=== PATIENT | female | born 1980 | race Two or more races ===

== ENCOUNTER 2016-10-17 11:23 | Emergency (ER) | payer BC ==
[2016-10-17 13:23] LABS: BILIRUBIN,URINE NEGATIVE (NEG); GLUCOSE,URINE 100 mg/dL (NEG); NITRITE,URINE NEGATIVE (NEG); PROTEIN,URINE NEGATIVE (NEG-TRACE); UROBILINOGEN,URINE 0.2 mg/dL (0.2 mg/dL)
[2016-10-17 13:30] LABS: BACTERIA,URINE 0 /HPF (0-FEW); RBC,URINE 0 /HPF (0-2); SQUAMOUS EPITHELIAL CELL,UR FEW /LPF
[2016-10-17] MEDS ORDERED: IV NORMAL SALINE 1000ML BAG 1,000 ML IV SCH (13:38)
[2016-10-17] MEDS ORDERED: ONDANSETRON PF 4 MG/2 ML VIAL. IV ONE (13:45)
[2016-10-17] MEDS ORDERED: FENTANYL PF 100 MCG/2 ML VIAL. IV PRN (13:45)
--- NOTE | 2016-10-17 14:16 | PHYS DOC ---
Past Medical History Past Medical History: No Pertinent History Past Surgical History: No Surgical History Alcohol Use: None Drug Use: None Adult General Chief Complaint Chief Complaint: ABDOMINAL PAIN HPI HPI Patient is a 36 year old female who presents with son for evaluation of right lower quadrant abdominal pain and nausea that started yesterday. She has burning pain to right lower quadrant that is constant and moderate. She has few episodes of nonbloody nonbilious emesis. She denies diarrhea, constipation, vaginal bleeding or discharge, dysuria, hematuria, fever or chills, cough, sick contacts. Review of Systems Review of Systems Constitutional: Denies fever or chills [] Eyes: Denies change in visual acuity, redness, or eye pain [] HENT: Denies nasal congestion or sore throat [] Respiratory: Denies cough or shortness of breath [] Cardiovascular: No additional information not addressed in HPI [] GI: Denies bloody stools or diarrhea [] : Denies dysuria or hematuria [] Musculoskeletal: Denies back pain or joint pain [] Integument: Denies rash or skin lesions [] Neurologic: Denies headache, focal weakness or sensory changes [] Endocrine: Denies polyuria or polydipsia [] Current Medications Current Medications Current Medications Medications (Trade) Dose Ordered Sig/Shaan Start Time Stop Time Status Last Admin Dose Admin Fentanyl Citrate 50 mcg 50 mcg PRN Q15MIN PRN 10/17/16 13:45 10/17/16 17:38 DC 10/17/16 14:30 50 MCG Info (Do NOT chart on this entry -- for MONITORING) 1 each PRN DAILY PRN 10/17/16 16:45 10/17/16 17:38 DC Iohexol (Omnipaque 300 Mg/ml) 75 ml 1X ONCE 10/17/16 17:15 10/17/16 17:16 DC 10/17/16 16:40 75 ML Ondansetron HCl (Zofran) 4 mg 1X ONCE 10/17/16 13:45 10/17/16 13:46 DC 10/17/16 14:20 4 MG Sodium Chloride (Iv Sodium Chloride 0.9% 1000ml Bag) 1,000 ml @ 1,000 mls/hr Q1H 10/17/16 13:38 10/17/16 14:37 DC 10/17/16 14:27 1,000 MLS/HR Allergies Allergies Allergies Coded Allergies Type Severity Reaction Last Updated Verified No Known Drug Allergies 10/17/16 No Physical Exam Physical Exam Constitutional: Well developed, well nourished, no acute distress, non-toxic appearance. [] HENT: Normocephalic, atraumatic, bilateral external ears normal, oropharynx moist, nose normal. [] Eyes: PERRLA, EOMI. [] Neck: Normal range of motion, supple. [] Cardiovascular:Heart rate regular rhythm [] Lungs & Thorax: Bilateral breath sounds clear to auscultation [] Abdomen: Bowel sounds normal, soft, moderate right mid abdominal tenderness, no guarding or rebound. [] Skin: Warm, dry, no erythema, no rash. [] Back: No tenderness, no CVA tenderness. [] Extremities: ROM intact, no edema. [] Neurologic: Alert and oriented X 3, normal motor function, normal sensory function, no focal deficits noted. [] Psychologic: Affect normal, judgement normal, mood normal. [] Current Patient Data Vital Signs Vital Signs Date Time Temp Pulse Resp B/P Pulse Ox O2 Delivery O2 Flow Rate FiO2 10/17/16 17:35 98 65 14 130/74 98 98.0 10/17/16 14:31 Room Air Lab Values Laboratory Tests Test 10/17/16 11:39 10/17/16 13:09 10/17/16 13:25 Urine Collection Type Unknown Urine Color Yellow Urine Clarity Clear Urine pH 6.0 Urine Specific [place] 1.015 Urine Protein Negativemg/dL (NEG-TRACE) Urine Glucose (UA) 100mg/dL (NEG) Urine Ketones (Stick) Negativemg/dL (NEG) Urine Blood Negative (NEG) Urine Nitrite Negative (NEG) Urine Bilirubin Negative (NEG) Urine Urobilinogen Dipstick 0.2mg/dL (0.2 mg/dL) Urine Leukocyte Esterase Small (NEG) Urine RBC 0/HPF (0-2) Urine WBC 1-4/HPF (0-4) Urine Squamous Epithelial Cells Few/LPF Urine Bacteria 0/HPF (0-FEW) POC Urine HCG, Qualitative Hcg negative (Negative) White Blood Count 8.8x10^3/uL (4.0-11.0) Red Blood Count 5.46x10^6/uL (3.50-5.40) H Hemoglobin 14.6g/dL (12.0-15.5) Hematocrit 43.8% (36.0-47.0) Mean Corpuscular Volume 80fL (79-100) Mean Corpuscular Hemoglobin 27pg (25-35) Mean Corpuscular Hemoglobin Concent 33g/dL (31-37) Red Cell Distribution Width 13.2% (11.5-14.5) Platelet Count 282x10^3/uL (140-400) Neutrophils (%) (Auto) 64% (31-73) Lymphocytes (%) (Auto) 29% (24-48) Monocytes (%) (Auto) 6% (0-9) Eosinophils (%) (Auto) 1% (0-3) Basophils (%) (Auto) 1% (0-3) Neutrophils # (Auto) 5.6x10^3uL (1.8-7.7) Lymphocytes # (Auto) 2.5x10^3/uL (1.0-4.8) Monocytes # (Auto) 0.5x10^3/uL (0.0-1.1) Eosinophils # (Auto) 0.1x10^3/uL (0.0-0.7) Basophils # (Auto) 0.0x10^3/uL (0.0-0.2) Sodium Level 137mmol/L (136-145) Potassium Level 3.7mmol/L (3.5-5.1) Chloride Level 102mmol/L (98-107) Carbon Dioxide Level 25mmol/L (21-32) Anion Gap 10 (6-14) Blood Urea Nitrogen 9mg/dL (7-20) Creatinine 0.5mg/dL (0.6-1.0) L Estimated GFR (Cockcroft-Gault) 140.4 Glucose Level 176mg/dL (70-99) H Calcium Level 8.9mg/dL (8.5-10.1) Total Bilirubin 0.5mg/dL (0.2-1.0) Direct Bilirubin 0.1mg/dL (0.0-0.2) Aspartate Amino Transferase (AST) 20U/L (15-37) Alanine Aminotransferase (ALT) 32U/L (14-59) Alkaline Phosphatase 82U/L (46-116) Total Protein 7.4g/dL (6.4-8.2) Albumin 3.3g/dL (3.4-5.0) L Lipase 102U/L (73-393) Laboratory Tests 10/17/16 13:25 Laboratory Tests 10/17/16 13:25 Radiology/Procedures Radiology/Procedures CT abdomen and pelvis with IV contrast Impression: 1.No acute abnormality is identified. Normal appendix is visualized. There may be hepatic steatosis. There may be small adnexal cysts bilaterally. DICTATED and SIGNED BY: KAREEM QUINTANILLA MD DATE: 10/17/161655 Course & Med Decision Making Course & Med Decision Making Pertinent Labs and Imaging studies reviewed. (See chart for details) Workup is unremarkable. She is feeling better after medications. She is tolerating oral intake. Return precautions given. She understands and agrees with plan. Entire encounter performed with son interpreting. Offered blue phone , but patient declined. Dragon Disclaimer Dragon Disclaimer This electronic medical record was generated, in whole or in part, using a voice recognition dictation system. Departure Departure Impression: Primary Impression: Right lower quadrant abdominal pain Additional Impression: Nausea and vomiting Disposition: 01 HOME, SELF-CARE Condition: STABLE Referrals: TRAVIS MCGOVERN MD (PCP) Patient Instructions: Abdominal Pain, Possible Early Appendicitis Additional Instructions: Take promethazine as needed for nausea. Follow-up with your primary care doctor within one week. Return for any concerns. Scripts Promethazine Hcl 25 Mg Tablet1 Tab PO PRN Q6HRS #10 TAB Prov:Sneha GARCÍA MD 10/17/16 Problem Qualifiers Additional Impression: Nausea and vomiting Vomiting type: unspecified Vomiting Intractability: non-intractable Qualified Code: R11.2 - Nausea with vomiting, unspecified Sneha GARCÍA MD Oct 17, 2016 14:16
[2016-10-17 14:30] LABS: BASO % 1 % (0-3); EOS % 1 % (0-3); HEMATOCRIT 43.8 % (36.0-47.0); HEMOGLOBIN 14.6 g/dL (12.0-15.5); LYMPH # 2.5 x10^3/uL (1.0-4.8); LYMPH % 29 % (24-48); MEAN CORPUSCULAR HEMOGLOBIN 27 pg (25-35); MEAN CORPUSCULAR HGB CONC 33 g/dL (31-37); MEAN CORPUSCULAR VOLUME 80 fL (79-100); MONO % 6 % (0-9); NEUT % 64 % (31-73); PLATELET COUNT 282 x10^3/uL (140-400); RED BLOOD COUNT 5.46 x10^6/uL (3.50-5.40); RED CELL DISTRIBUTION WIDTH 13.2 % (11.5-14.5); WHITE BLOOD COUNT 8.8 x10^3/uL (4.0-11.0)
[2016-10-17 14:49] LABS: CALCIUM 8.9 mg/dL (8.5-10.1); CREATININE 0.5 mg/dL (0.6-1.0); GFR 140.4; POTASSIUM 3.7 mmol/L (3.5-5.1)
[2016-10-17 14:54] LABS: ALBUMIN 3.3 g/dL (3.4-5.0); DIRECT BILIRUBIN 0.1 mg/dL (0.0-0.2); TOTAL BILIRUBIN 0.5 mg/dL (0.2-1.0); TOTAL PROTEIN 7.4 g/dL (6.4-8.2)
[2016-10-17] MEDS ORDERED: CONTRAST GIVEN MC PRN (16:45)
--- NOTE | 2016-10-17 17:02 | RAD ---
ABD PELV W/ IV CONTRAST ONLY History:Right lower quadrant pain Technique: After bolus of intravenous contrast, CT imaging was performed of the abdomen and pelvis, multiplanar reconstruction images submitted. Exposure: One or more of the following individualized dose reduction techniques were utilized for this exam: 1. Automated exposure control.2. Adjustment of the mA and/or KV according to patient size.3. Use of iterative reconstruction technique. Comparison: None Findings:There is mild dependent atelectasis. Lung bases. No focal abnormality is identified of the liver, spleen, pancreas. There may be hepatic steatosis. Gallbladder is present without obvious intraluminal abnormality by CT. Both kidneys enhance, no hydronephrosis. Accurate evaluation of bowel is limited without oral contrast. There is no significant bowel dilatation, free air, free fluid. Normal appendix is visualized. There is distention of urinary bladder. There may be small adnexal cysts bilaterally. Impression: 1.No acute abnormality is identified. Normal appendix is visualized. There may be hepatic steatosis. There may be small adnexal cysts bilaterally.
[2016-10-17] MEDS ORDERED: IOHEXOL 300 MG/ML 75 ML VIAL IV ONE (17:15)
[2016-10-17] MEDS ORDERED: PROM25TA10 PO (17:20)
[2016-10-17 17:35] VITALS: BP 130/74
== END 2016-10-17 17:37 | disposition home or self-care (01) ==
LOC: ER 11:23
DX: R10.31 Right lower quadrant pain (principal); R11.2 Nausea with vomiting, unspecified
CPT/HCPCS: 36415; 74177; 80048; 80076; 81001; 81025; 83690; 85027; 96361; 96374; 96375; 99285; J2405; J3010; J7030; Q9967

== ENCOUNTER 2017-01-04 02:36 | Emergency (ER) | payer BC ==
[~2017-01-04 02:36] MED LIST: PROM25TA10 PO
[2017-01-04 02:49] VITALS: BP 163/92
--- NOTE | 2017-01-04 03:03 | PHYS DOC ---
Past Medical History Past Medical History: No Pertinent History Past Surgical History: No Surgical History Alcohol Use: None Drug Use: None Adult General Chief Complaint Chief Complaint: SKIN RASH/ABSCESS HPI HPI Patient is a 36 year old female presenting to the emergency department for evaluation of a rash that has been present for the past 24-48 hours. Rash started on bilateral upper extremities and is itchy and is now on her chest and back. Patient denies any new medications so fast detergents or exposures or anything that she can think of. No difficulty breathing swallowing or shortness of breath. Patient is in no obvious distress with normal vital signs. Review of Systems Review of Systems Constitutional: Denies fever or chills [] GI: Denies abdominal pain, nausea, vomiting, bloody stools or diarrhea [] Integument: + rash. No skin lesions [] Neurologic: Denies headache, focal weakness or sensory changes [] Current Medications Current Medications Current Medications Medications (Trade) Dose Ordered Sig/Shaan Start Time Stop Time Status Last Admin Dose Admin Dexamethasone Sodium Phosphate (Decadron) 8 mg 1X ONCE 01/04/17 03:30 01/04/17 03:31 Diphenhydramine HCl (Benadryl) 50 mg 1X ONCE 01/04/17 03:30 01/04/17 03:31 Famotidine (Pepcid) 20 mg 1X ONCE 01/04/17 03:30 01/04/17 03:31 Allergies Allergies Allergies Coded Allergies Type Severity Reaction Last Updated Verified No Known Drug Allergies 10/17/16 No Physical Exam Physical Exam Constitutional: Well developed, well nourished, no acute distress, non-toxic appearance. [] Cardiovascular:Heart rate regular rhythm, no murmur [] Lungs & Thorax: Bilateral breath sounds clear to auscultation [] Abdomen: Bowel sounds normal, soft, no tenderness, no masses, no pulsatile masses. [] Skin: Hives present on bilateral upper extremities chest and back, Current Patient Data Vital Signs Vital Signs Date Time Temp Pulse Resp B/P Pulse Ox O2 Delivery O2 Flow Rate FiO2 01/04/17 02:49 97.8 80 16 95 Room Air 97.8 EKG EKG [] Radiology/Procedures Radiology/Procedures [] Course & Med Decision Making Course & Med Decision Making Lungs and oral exam quite Unremarkable. Patient given Decadron Benadryl and Pepcid here and will be treated with Benadryl as an outpatient and told to follow with her primary care provider in 2 days to ensure improvement come back to the ER sooner with any worsening rash difficulty breathing swallowing other general concerns. Patient and aware and agreeable with plan and verbalized understanding of the above instructions. Dragon Disclaimer Dragon Disclaimer This electronic medical record was generated, in whole or in part, using a voice recognition dictation system. Departure Departure Impression: Primary Impression: Allergic reaction Disposition: HOME, SELF-CARE Condition: GOOD Referrals: TRAVIS MCGOVERN MD (PCP) Patient Instructions: Allergies, Generic Additional Instructions: TAKE 25-50MG OF BENADRYL EVERY 4-6 HOURS. FOLLOW WITH YOUR PRIMARY CARE PROVIDER IN 2 DAYS AND COME BACK TO THE ED SOONER WITH WORSENING SYMPTOMS. THANK YOU! ESTEBAN VASQUEZ DO January 04, 2017 03:03
[2017-01-04] MEDS ORDERED: DEXAMETHASONE SOD PHOS 4 MG/ML VIAL PO ONE (03:30)
[2017-01-04] MEDS ORDERED: diphenhydrAMINE HCL 25 MG CAPSULE PO ONE (03:30)
[2017-01-04] MEDS ORDERED: FAMOTIDINE 20 MG TABLET. PO ONE (03:30)
== END 2017-01-04 03:27 | disposition home or self-care (01) ==
LOC: ER 02:36
DX: T78.49XA Other allergy, initial encounter (principal); X58.XXXA Exposure to other specified factors, initial encounter
CPT/HCPCS: 99284; J1100; Q0163

== ENCOUNTER 2017-04-29 20:36 | Emergency (ER) | payer BC ==
[~2017-04-29] VITALS: Ht 157.5 cm; Wt 65.8 kg
[~2017-04-29 20:36] MED LIST changes: +BUTA1CAP29 PO; +METF500T4 PO
[2017-04-29 21:10] LABS: BILIRUBIN,URINE NEGATIVE (NEG); GLUCOSE,URINE >=1000 mg/dL (NEG); NITRITE,URINE NEGATIVE (NEG); PROTEIN,URINE NEGATIVE (NEG-TRACE); UROBILINOGEN,URINE 0.2 mg/dL (0.2 mg/dL)
[2017-04-29 21:13] LABS: NEG OBC UR NEG; POS OBC UR POS
[2017-04-29 21:17] LABS: BACTERIA,URINE FEW /HPF (0-FEW); RBC,URINE 0 /HPF (0-2); SQUAMOUS EPITHELIAL CELL,UR MANY /LPF
[2017-04-29 21:44] LABS: BASO # 0.1 x10^3/uL (0.0-0.2); BASO % 1 % (0-3); EOS % 2 % (0-3); HEMATOCRIT 39.8 % (36.0-47.0); LYMPH # 2.8 x10^3/uL (1.0-4.8); LYMPH % 38 % (24-48); MEAN CORPUSCULAR HEMOGLOBIN 27 pg (25-35); MEAN CORPUSCULAR HGB CONC 33 g/dL (31-37); MEAN CORPUSCULAR VOLUME 81 fL (79-100); MONO % 8 % (0-9); NEUT % 52 % (31-73); PLATELET COUNT 231 x10^3/uL (140-400); RED CELL DISTRIBUTION WIDTH 13.5 % (11.5-14.5); WHITE BLOOD COUNT 7.4 x10^3/uL (4.0-11.0)
[2017-04-29] MEDS ORDERED: oxyCODONE/APAP 5/325 1 TAB TABLET PO ONE (21:45)
[2017-04-29] MEDS ORDERED: ONDANSETRON PF 4 MG/2 ML VIAL. IV ONE (21:45)
[2017-04-29] MEDS ORDERED: KETOROLAC TROMETHAMINE 30 MG/ML INJ. IV ONE (21:45)
[2017-04-29] MEDS ORDERED: IV NORMAL SALINE 1000ML BAG 1,000 ML IV ONE (21:45)
[2017-04-29 21:53] LABS: CALCIUM 8.3 mg/dL (8.5-10.1); CREATININE 0.7 mg/dL (0.6-1.0); GFR 94.7; POTASSIUM 4.1 mmol/L (3.5-5.1)
[2017-04-29 21:58] LABS: INR 0.9 (0.8-1.1); PROTHROMBIN TIME PATIENT 11.9 SEC (11.7-14.0)
[2017-04-29 21:59] LABS: ALBUMIN 3.3 g/dL (3.4-5.0); ALBUMIN/GLOBULIN RATIO 0.9 (1.0-1.7); MAGNESIUM 1.9 mg/dL (1.8-2.4); TOTAL BILIRUBIN 0.2 mg/dL (0.2-1.0); TOTAL PROTEIN 6.9 g/dL (6.4-8.2)
[2017-04-29] MEDS ORDERED: AZIT1PAC PO (23:15)
[2017-04-29] MEDS ORDERED: HYDR-971 PO (23:15)
--- NOTE | 2017-04-29 23:15 | PHYS DOC ---
Past Medical History Past Medical History: Hypertension, Other Additional Past Medical Histor: HYPERGLYCEMIA Past Surgical History: No Surgical History Alcohol Use: None Drug Use: None Adult General Chief Complaint Chief Complaint: ABDOMINAL PAIN HPI HPI Patient is a 37 year old female presenting to the emergency department for evaluation of chest pain cough nasal congestion and runny nose that started 3-4 days ago and has persisted. Patient is present with children who are interpreting for patient. Recommended blue phone video operator however patient requested that family interpret. Pain is on the left chest sharp movements and deep breaths and palpation make the pain worse. Patient's cough is nonproductive and she denies any fevers chills nausea vomiting or other systemic symptoms. Patient says that she is healthy and has no medical problems. She has been told that she has high blood pressure and high blood sugar but has not officially been diagnosed and is not on any medications. She is in no obvious distress with normal vital signs. Review of Systems Review of Systems Constitutional: Denies fever or chills [] Eyes: Denies change in visual acuity, redness, or eye pain [] HENT: + nasal congestion. No sore throat [] Respiratory: + cough. No shortness of breath [] Cardiovascular: No additional information not addressed in HPI [] GI: Denies abdominal pain, nausea, vomiting, bloody stools or diarrhea [] : Denies dysuria or hematuria [] Musculoskeletal: Denies back pain or joint pain [] Integument: Denies rash or skin lesions [] Neurologic: Denies headache, focal weakness or sensory changes [] Current Medications Current Medications Current Medications Medications (Trade) Dose Ordered Sig/[facility] Start Time Stop Time Status Last Admin Dose Admin Ketorolac Tromethamine (Toradol) 30 mg 1X ONCE 04/29/17 21:45 04/29/17 21:46 DC 04/29/17 21:46 30 MG Ondansetron HCl (Zofran) 4 mg 1X ONCE 04/29/17 21:45 04/29/17 21:46 DC 04/29/17 21:45 4 MG Oxycodone/ Acetaminophen (Percocet 5/325) 2 tab 1X ONCE 04/29/17 21:45 04/29/17 21:46 DC 04/29/17 21:47 2 TAB Sodium Chloride 1,000 ml @ 1,000 mls/hr 1X ONCE 04/29/17 21:45 04/29/17 22:44 DC 04/29/17 21:45 1,000 MLS/HR Allergies Allergies Allergies Coded Allergies Type Severity Reaction Last Updated Verified No Known Drug Allergies 10/17/16 No Physical Exam Physical Exam Constitutional: Well developed, well nourished, no acute distress, non-toxic appearance. [] HENT: Normocephalic, atraumatic, bilateral external ears normal, oropharynx moist, no oral exudates, nose normal. [] Eyes: PERRLA, EOMI, conjunctiva normal, no discharge. [] Neck: Normal range of motion, no tenderness, supple, no stridor. [] Cardiovascular:Heart rate regular rhythm, no murmur [] Lungs & Thorax: Bilateral breath sounds clear to auscultation. Ribs under her left breast very tender to palpation and pain goes along left rib cage laterally and posteriorly. Abdomen: Bowel sounds normal, soft, no tenderness, no masses, no pulsatile masses. [] Skin: Warm, dry, no erythema, no rash. [] Back: No tenderness, no CVA tenderness. [] Extremities: No tenderness, no cyanosis, no clubbing, ROM intact, no edema. [] Neurologic: Alert and oriented X 3, normal motor function, normal sensory function, no focal deficits noted. [] Current Patient Data Vital Signs Vital Signs Date Time Temp Pulse Resp B/P (MAP) Pulse Ox O2 Delivery O2 Flow Rate FiO2 04/29/17 22:30 74 20 158/83 (108) 100 Room Air 04/29/17 20:56 98.2 98.2 Lab Values Laboratory Tests Test 04/29/17 21:00 04/29/17 21:36 Urine Collection Type Unknown Urine Color Yellow Urine Clarity Clear Urine pH 6.0 Urine Specific [place] >=1.030 Urine Protein Negative mg/dL (NEG-TRACE) Urine Glucose (UA) >=1000 mg/dL (NEG) Urine Ketones (Stick) Negative mg/dL (NEG) Urine Blood Negative (NEG) Urine Nitrite Negative (NEG) Urine Bilirubin Negative (NEG) Urine Urobilinogen Dipstick 0.2 mg/dL (0.2 mg/dL) Urine Leukocyte Esterase Small (NEG) Urine RBC 0 /HPF (0-2) Urine WBC 5-10 /HPF (0-4) Urine Squamous Epithelial Cells Many /LPF Urine Bacteria Few /HPF (0-FEW) Urine Mucus Mod /LPF Urine Test Negative (NEG) White Blood Count 7.4 x10^3/uL (4.0-11.0) Red Blood Count 4.90 x10^6/uL (3.50-5.40) Hemoglobin 13.0 g/dL (12.0-15.5) Hematocrit 39.8 % (36.0-47.0) Mean Corpuscular Volume 81 fL (79-100) Mean Corpuscular Hemoglobin 27 pg (25-35) Mean Corpuscular Hemoglobin Concent 33 g/dL (31-37) Red Cell Distribution Width 13.5 % (11.5-14.5) Platelet Count 231 x10^3/uL (140-400) Neutrophils (%) (Auto) 52 % (31-73) Lymphocytes (%) (Auto) 38 % (24-48) Monocytes (%) (Auto) 8 % (0-9) Eosinophils (%) (Auto) 2 % (0-3) Basophils (%) (Auto) 1 % (0-3) Neutrophils # (Auto) 3.8 x10^3uL (1.8-7.7) Lymphocytes # (Auto) 2.8 x10^3/uL (1.0-4.8) Monocytes # (Auto) 0.6 x10^3/uL (0.0-1.1) Eosinophils # (Auto) 0.2 x10^3/uL (0.0-0.7) Basophils # (Auto) 0.1 x10^3/uL (0.0-0.2) Prothrombin Time 11.9 SEC (11.7-14.0) Prothrombin Time INR 0.9 (0.8-1.1) PTT 31 SEC (24-38) Sodium Level 138 mmol/L (136-145) Potassium Level 4.1 mmol/L (3.5-5.1) Chloride Level 103 mmol/L (98-107) Carbon Dioxide Level 28 mmol/L (21-32) Anion Gap 7 (6-14) Blood Urea Nitrogen 10 mg/dL (7-20) Creatinine 0.7 mg/dL (0.6-1.0) Estimated GFR (Cockcroft-Gault) 94.7 BUN/Creatinine Ratio 14 (6-20) Glucose Level 334 mg/dL (70-99) H Calcium Level 8.3 mg/dL (8.5-10.1) L Magnesium Level 1.9 mg/dL (1.8-2.4) Total Bilirubin 0.2 mg/dL (0.2-1.0) Aspartate Amino Transferase (AST) 29 U/L (15-37) Alanine Aminotransferase (ALT) 49 U/L (14-59) Alkaline Phosphatase 85 U/L (46-116) Troponin I Quantitative < 0.017 ng/mL (0.000-0.055) UD-Ott-S-Type Natriuretic Peptide 16 pg/mL (0-124) Total Protein 6.9 g/dL (6.4-8.2) Albumin 3.3 g/dL (3.4-5.0) L Albumin/Globulin Ratio 0.9 (1.0-1.7) L Lipase 208 U/L (73-393) Laboratory Tests 04/29/17 21:36 Laboratory Tests 04/29/17 21:36 EKG EKG Sinus rhythm at 78 beats per minutes with normal axis no obvious ST elevation or depression and normal T waves. Radiology/Procedures Radiology/Procedures Normal mediastinum and normal heart size no obvious free air pneumothorax but she does have right perihilar infiltrate. Course & Med Decision Making Course & Med Decision Making Patient with multiple complaints likely related to a upper respiratory tract infection. Her physical exam is benign except for the chest wall tenderness to palpation. Pain has been going on constantly for the past 3 days making this more likely atypical chest pain. Patient was given Toradol and Percocet in her pain was much improved but she said she did still have pain with deep breaths and movement of her torso. Perc score is equal to 0 and her heart score is equal to 2 based off likely diagnoses of diabetes and hypertension have not been diagnosed at this point. I'm comfortable treating her as an outpatient given she appears well normal vital signs. I will start her on Zithromax and [place] for pain and cough and recommend [id number] ibuprofen and Nasonex. She was advised to follow with her primary care provider within 2-3 days to go over the results of her tests to come back to the ER sooner with worsening pain shortness of breath or other general concerns. Patient aware and agreeable with plan for discharge and verbalized understanding of the need for short-term follow-up in the strict ER return precautions discussed as above. Dragon Disclaimer Dragon Disclaimer This electronic medical record was generated, in whole or in part, using a voice recognition dictation system. Departure Departure Impression: Primary Impression: Chest wall pain Additional Impressions: URI (upper respiratory infection) Hyperglycemia Disposition: HOME, SELF-CARE Condition: GOOD Referrals: TRAVIS MCGOVERN MD (PCP) Patient Instructions: Costochondritis Additional Instructions: TAKE 400MG OF IBUPROFEN EVERY 6 HOURS AND THE NORCO FOR BREAKTHROUGH PAIN. DRINK PLENTY OF FLUIDS. USE OTC NASONEX FOR YOUR COUGH AND CONGESTION. FOLLOW WITH YOUR PCP IN 2-3 DAYS AND COME BACK TO THE ED SOONER WITH WORSENING PAIN, SOA, OR OTHER GENERAL CONCERNS. THANK YOU! Scripts Hydrocodone/Apap 5-325 (NORCO 5-325 TABLET) 1 Each Tablet 1 TAB PO PRN Q6HRS Y for PAIN, #14 TAB 0 Refills Prov: ESTEBAN VASQUEZ DO 04/29/17 Azithromycin (ZITHROMAX PACKET) 1 Gm Packet 1 PACKET PO ONCE, #1 PACKET Prov: ESTEBAN VASQUEZ DO 04/29/17 Problem Qualifiers ESTEBAN VASQUEZ DO Apr 29, 2017 23:15
[2017-04-29 23:25] VITALS: BP 158/85
--- NOTE | 2017-04-30 08:01 | RAD ---
Two view chest History:Left low side rib pain, chest pain . PA and lateral views of the chest are submitted. Comparison: 08/19/2009 Findings: There is no significant infiltrate, pleural effusion, or pneumothorax. The pericardial cardiac silhouette is within normal limits in size. The trachea is in the midline. No acute osseous abnormality is identified. Impression: There is no evidence of acute cardiopulmonary disease.
--- NOTE | 2017-04-30 11:13 | EKG ---
[facility] [address] [place] [id number] Test Date: 2017-04-29 Test Time: 21:36:51 Pat Name: SARA LEWIS Department: Room: Gender: F Fishing Vessel Operator: : 1980 Requested By: ESTEBAN VASQUEZ Order Number: [id number] Reading MD: Antelmo Valle Measurements Intervals [place] Rate: 78 P: 35 NM: 156 QRS: 14 QRSD: 80 T: 26 QT: 378 QTc: 434 Interpretive Statements SINUS RHYTHM Electronically Signed On 05-03-2017 9:46:41 CDT by Antelmo Valle
== END 2017-04-29 23:31 | disposition home or self-care (01) ==
LOC: ER 20:36
DX: R07.89 Other chest pain (principal); J06.9 Acute upper respiratory infection, unspecified; R73.9 Hyperglycemia, unspecified; I10 Essential (primary) hypertension
CPT/HCPCS: 36415; 71020; 80053; 81001; 81025; 83690; 83735; 83880; 84484; 85025; 85610; 85730; 87086; 93005; 96361; 96374; 96375; 99285; J1885; J2405; J7030

== ENCOUNTER 2017-05-02 16:32 | Emergency (ER) | payer BC ==
[~2017-05-02 16:32] MED LIST changes: +AZIT1PAC PO; +HYDR-971 PO
[2017-05-02 16:50] VITALS: BP 165/93
[2017-05-02] MEDS ORDERED: LIDOCAINE (700MG/PATCH) PATCH. TD ONE (17:15)
[2017-05-02] MEDS ORDERED: GUAI120L35 PO (17:33)
[2017-05-02] MEDS ORDERED: AZIT250T6 PO (17:33)
[2017-05-02] MEDS ORDERED: IBUP-1007 PO (17:33)
--- NOTE | 2017-05-02 17:34 | PHYS DOC ---
Past Medical History Past Medical History: Hypertension, Other Additional Past Medical Histor: HYPERGLYCEMIA Past Surgical History: No Surgical History Alcohol Use: None Drug Use: None Adult General Chief Complaint Chief Complaint: back pain, cough [facility] HPI Patient is a 37 year old female who presents with left back and side pain, worse with cough and deep inspiration. Ongoing for several days. Seen in the ER 3 days ago for similar symptoms, prescribed Zithromax but only received 1 dose of the medication by prescription. She states the [place] she was given else with the pain but then the pain comes back. No fevers reported. Patient is non-Moroccan speaking, family member preferred to interpret for the patient Review of Systems Review of Systems Constitutional: Denies fever or chills [] Eyes: Denies change in visual acuity, redness, or eye pain [] HENT: Denies nasal congestion or sore throat [] Respiratory: Per history of present illness Cardiovascular: No additional information not addressed in HPI [] GI: Denies abdominal pain, nausea, vomiting, bloody stools or diarrhea [] : Denies dysuria or hematuria [] Musculoskeletal: Denies back pain or joint pain [] Integument: Denies rash or skin lesions [] Neurologic: Denies headache, focal weakness or sensory changes [] Current Medications Current Medications Current Medications Medications (Trade) Dose Ordered Sig/Shaan Start Time Stop Time Status Last Admin Dose Admin Lidocaine (Lidoderm) 1 patch 1X ONCE 05/02/17 17:15 05/02/17 17:16 DC 05/02/17 17:22 1 PATCH Allergies Allergies Allergies Coded Allergies Type Severity Reaction Last Updated Verified No Known Drug Allergies 10/17/16 No Physical Exam Physical Exam Constitutional: Well developed, well nourished, no acute distress, non-toxic appearance. [] HENT: Normocephalic, atraumatic, bilateral external ears normal, oropharynx moist, no oral exudates, nose normal. [] Eyes: PERRLA, EOMI, conjunctiva normal, no discharge. [] Neck: Normal range of motion, no tenderness, supple, no stridor. [] Cardiovascular:Heart rate regular with regular rhythm, no murmur [] Lungs & Thorax: Bilateral breath sounds clear to auscultation, tender to palpation in the left upper back and left lateral chest wall that reproduces patient's pain, no crepitus, no wheeze or crackles appreciated Abdomen: Bowel sounds normal, soft, no tenderness, no masses, no pulsatile masses. [] Skin: Warm, dry, no erythema, no rash. [] Back: No tenderness, no CVA tenderness. [] Extremities: No tenderness, no cyanosis, no clubbing, ROM intact, no edema. [] Neurologic: Alert and oriented X 3, normal motor function, normal sensory function, no focal deficits noted. [] Current Patient Data Vital Signs Vital Signs Date Time Temp Pulse Resp B/P (MAP) Pulse Ox O2 Delivery O2 Flow Rate FiO2 05/02/17 16:50 97.9 80 18 165/93 (117) 98 Room Air 97.9 EKG EKG 81 bpm, sinus, normal axis, normal intervals, no ST elevation or depression, nonischemic T waves, interpreted by me [] Radiology/Procedures Radiology/Procedures [] Course & Med Decision Making Course & Med Decision Making Pertinent Labs and Imaging studies reviewed. (See chart for details) I reviewed the records from patient's previous visit. The prescription appears to have been written and air for only one day. We will treat the patient with the appropriate Z-Damian, cough syrup will be given, patient was given Lidoderm patch here in the ED. Dragon Disclaimer Dragon Disclaimer This electronic medical record was generated, in whole or in part, using a voice recognition dictation system. Departure Departure Impression: Primary Impression: Cough Additional Impression: Back pain Disposition: 01 HOME, SELF-CARE Condition: STABLE Referrals: TRAVIS MCGOVERN MD (PCP) Patient Instructions: Cough, Adult Additional Instructions: Take antibiotics until completed. Do no take the cough syrup and the hydrocodone tablets at the same time. You may take one or the other. Follow- up with your doctor to ensure your symptoms are well controlled. Scripts Ibuprofen (IBUPROFEN) 600 Mg Tablet 600 MG PO PRN Q6HRS Y for PAIN, #20 TAB take with food or milk Prov: SONNY NOVAK MD 05/02/17 Azithromycin (AZITHROMYCIN TABLET) 250 Mg Tablet 1 PKG PO UD, #6 TAB Prov: SONNY NOVAK MD 05/02/17 Guaifenesin/Codeine Phosphate (Codeine-Guaifen 10-100 mg/5 ml) 120 Ml Liquid 10 ML PO PRN Q4-6HRS Y for COUGH, #150 LIQUID Prov: SONNY NOVAK MD 05/02/17 Problem Qualifiers SONNY NOVAK MD May 02, 2017 17:34
--- NOTE | 2017-05-02 17:41 | EKG ---
[facility] [address] [place] [address] Test Date: 2017-05-02 Test Time: 17:13:15 Pat Name: SARA LEWIS Department: Room: Gender: F Automation Technologist: : 1980 Requested By: SONNY NOVAK Order Number: [id number] Reading MD: Antelmo Valle Measurements Intervals Arma Rate: 81 P: 32 AZ: 160 QRS: 15 QRSD: 80 T: 18 QT: 366 QTc: 431 Interpretive Statements SINUS RHYTHM Electronically Signed On 05-03-2017 9:32:04 CDT by Antelmo Valle
== END 2017-05-02 17:57 | disposition home or self-care (01) ==
LOC: ER 16:32
DX: M54.6 Pain in thoracic spine (principal); R05 Cough; R07.89 Other chest pain; I10 Essential (primary) hypertension
CPT/HCPCS: 93005; 99283-25; 99284-25

== ENCOUNTER 2017-10-18 11:34 | Emergency (ER) | payer SELFPAY, BC ==
[2017-10-18 12:26] LABS: NEGATIVE OBC STREP NEG; POSITIVE OBC STREP POS
[2017-10-18] MEDS: predniSONE 20 MG TABLET PO ×2 (12:29)
[2017-10-18] MEDS: ACETAMINOPHEN 325 MG TABLET. PO ×2 (12:30)
== END 2017-10-18 13:00 | disposition home or self-care (01) ==
LOC: ER 11:34
DX: J02.9 Acute pharyngitis, unspecified (principal); I10 Essential (primary) hypertension
CPT/HCPCS: 87880; 99283; J7512

== ENCOUNTER 2020-07-01 11:00 | Emergency (ER) | payer BC ==
[~2020-07-01] VITALS: Ht 152.4 cm; Wt 75.0 kg
[~2020-07-01 11:00] MED LIST changes: +AMOX500C PO; +AZIT250T6 PO; +GUAI120L35 PO; +HYDR-3164 PO; -HYDR-971 PO; +IBUP-1007 PO; +METF500T16 PO; -METF500T4 PO; +PRED20TA PO
[2020-07-01] MEDS ORDERED: ASPIRIN 325 MG TABLET PO ONE (11:45)
[2020-07-01] MEDS ORDERED: PROCHLORPERAZINE 10 MG/2 ML VIAL. IV ONE (11:45)
[2020-07-01] MEDS ORDERED: IV NORMAL SALINE 1000ML BAG 1,000 ML IV SCH (11:45)
[2020-07-01] MEDS ORDERED: PANTOPRAZOLE IV PUSH 40 MG VIAL. IVP ONE (11:45)
[2020-07-01] MEDS ORDERED: diphenhydrAMINE 50 MG/ML VIAL IVP ONE (11:45)
[2020-07-01] MEDS: NITROGLYCERIN SUBLINGUAL 0.4 MG BOTTLE OF 25. SL PRN ×2 (12:04→12:15)
[2020-07-01 12:09] LABS: BASO # 0.1 x10^3/uL (0.0-0.2); BASO % 1 % (0-3); EOS # 0.1 x10^3/uL (0.0-0.7); EOS % 1 % (0-3); HEMATOCRIT 42.9 % (36.0-47.0); HEMOGLOBIN 14.6 g/dL (12.0-15.5); LYMPH # 3.2 x10^3/uL (1.0-4.8); LYMPH % 29 % (24-48); MEAN CORPUSCULAR HEMOGLOBIN 27 pg (25-35); MEAN CORPUSCULAR HGB CONC 34 g/dL (31-37); MEAN CORPUSCULAR VOLUME 79 fL (79-100); MONO # 0.7 x10^3/uL (0.0-1.1); MONO % 6 % (0-9); NEUT # 7.2 x10^3/uL (1.8-7.7); NEUT % 64 % (31-73); PLATELET COUNT 329 x10^3/uL (140-400); RED BLOOD COUNT 5.41 x10^6/uL (3.50-5.40); RED CELL DISTRIBUTION WIDTH 13.7 % (11.5-14.5); WHITE BLOOD COUNT 11.3 x10^3/uL (4.0-11.0)
--- NOTE | 2020-07-01 12:15 | PHYS DOC ---
Past Medical History Past Medical History: Diabetes-Type II, Hypertension Additional Past Medical Histor: HYPERGLYCEMIA (PATRICIA DYSON APRN) Past Surgical History: (PATRICIA DYSON APRN) Smoking Status: Never Smoker Alcohol Use: None Drug Use: None (PATRICIA DYSON APRN) General Adult EDM: Chief Complaint: DIZZY/LIGHT HEADED HPI: HPI: Patient is a 40 year old female who presents with diplomatic interpreter/translator phone is used and is in the room. Patient is very anxious and crying. Patient would not answer questions for nurses. was able to tell us what he knows. Patient states she is too scared to speak. states that patient awoke this morning and complained of some mid chest pain, dizziness and some nausea and began stating that " she feels like she is dying and wants to know who is going to take care of her kids". Patient is hypertensive at 180/1 100s. Lynne whelan did not take her medicines today. Patient has a history of hypertension diabetes and she takes insulin for her diabetes. When I got into the room I began talking to the and had the asked the 's questions. The patient finally answered that yes she is dizzy, she has midsternal chest pain without radiation, nausea and complains of no abdominal pain or tenderness. states that the patient states that she was stating " that she is going to " she began having numbness in her bilateral hands and in her feet. states that the patient states that she does have a headache but also that she has neck pain but is unable to tell me if it is neck stiffness or intermittent neck pain. Patient would not answer the question and states that she has pain but she "does not know if she has a headache". Patient's states that her father from heart disease in the past. Patient is not taking any aspirin. The states the patient denies vomiting, diarrhea, fever, syncope, numbness or tingling at this time, focal weakness, vision changes, light sensitivity, cough, dysuria symptoms. Patient does follow commands. She was able to undress herself. Patient is unable to tell me the quality of her pain or give me a pain rating stating " I do not know". (PATRICIA DYSON APRN) Review of Systems: Review of Systems: Constitutional: Denies fever or chills. [] Eyes: Denies change in visual acuity. [] HENT: Denies nasal congestion or sore throat. [] Respiratory: Denies cough or shortness of breath. [] Cardiovascular: +chest pain or denies edema. [] GI: Denies abdominal pain. + nausea, denies vomiting, bloody stools or diarrhea. [] : Denies dysuria. [] Musculoskeletal: Denies back pain or joint pain. [] Integument: Denies rash. [] Neurologic: +headache, + dizziness, focal weakness or sensory changes. [] Endocrine: Denies polyuria or polydipsia. [] Lymphatic: Denies swollen glands. [] Psychiatric: Denies depression. + Feels as though she is going , +anxiety. [] (PATRICIA DYSON APRN) Heart Score: HEART Score for Chest Pain: HEART Score for Chest Pain Response (Comments) Value History Slighlty/Non-Suspicious 0 ECG Nonspecific Repolarizatio 1 Age < 45 0 Risk Factors >3 Risk Factors or Hx CAD 2 Troponin < Normal Limit 0 Total 3 Risk Factors: Risk Factors: DM, Current or recent (<one month) smoker, HTN, HLP, family history of CAD, obesity. Risk Scores: Score 0 - 3: 2.5% MACE over next 6 weeks - Discharge Home Score 4 - 6: 20.3% MACE over next 6 weeks - Admit for Clinical Observation Score 7 - 10: 72.7% MACE over next 6 weeks - Early Invasive Strategies (PATRICIA DYSON APRN) Current Medications: Current Medications Medications (Trade) Dose Ordered Sig/Shaan Start Time Stop Time Status Last Admin Dose Admin Aspirin (Vida Aspirin) 325 mg 1X ONCE 07/01/20 11:45 07/01/20 11:51 DC Diphenhydramine HCl (Benadryl) 25 mg 1X ONCE 07/01/20 11:45 07/01/20 11:51 DC Nitroglycerin (Nitrostat) 0.4 mg PRN Q5MIN PRN 07/01/20 11:45 07/02/20 11:44 Pantoprazole Sodium (PROTONIX VIAL for IV PUSH) 40 mg 1X ONCE 07/01/20 11:45 07/01/20 11:51 DC Prochlorperazine Edisylate (Compazine) 10 mg 1X ONCE 07/01/20 11:45 07/01/20 11:51 DC Sodium Chloride 1,000 ml @ 1,000 mls/hr Q1H 07/01/20 11:45 07/01/20 12:44 [facility] Allergies: Allergies: Allergies Coded Allergies Type Severity Reaction Last Updated Verified No Known Drug Allergies 10/17/16 No [facility] Physical Exam: PE: Constitutional: Well developed, well nourished, no acute distress, non-toxic appearance. [] HENT: Normocephalic, atraumatic, bilateral external ears normal, oropharynx moist, no oral exudates, nose normal. [] Eyes: PERRLA, EOMI, conjunctiva normal, no discharge. [] Neck: Normal range of motion, no tenderness, supple, no stridor. [] Cardiovascular:Heart rate tachycardia regular rhythm, no murmur [] Lungs & Thorax: Bilateral breath sounds clear to auscultation [] Abdomen: Bowel sounds normal, soft, no tenderness, no masses, no pulsatile masses. [] Skin: Warm, dry, no erythema, no rash. [] Back: No tenderness, no CVA tenderness. [] Extremities: No tenderness, no cyanosis, no clubbing, ROM intact, no edema. [] Neurologic: Alert and oriented X 3, normal motor function, normal sensory function, no focal deficits noted. [] Psychologic: Affect normal, judgement normal, mood normal. Anxious. [] ([facility] Current Patient Data: Labs: Laboratory Tests Test 07/01/20 11:40 Glucose (Fingerstick) 153 mg/dL (70-99) H Vital Signs: Vital Signs Date Time Temp Pulse Resp B/P (MAP) Pulse Ox O2 Delivery O2 Flow Rate FiO2 07/01/20 11:51 97.4 110 20 95 97.4 07/01/20 11:22 180/115 (136) Room Air ([facility] EKG: EK and read by Dr. Malhotra as sinus tachycardia no STEMI [address] Malhotra as Sinus Tachycardia and no STEMI [] ([facility]) Radiology/Procedures: Radiology/Procedures: [] Impression: [facility] [address] [place] [address] IMAGING REPORT Signed PATIENT: NISHI LEWIS: [id number] : 1980 LOCATION: ER AGE: 40 SEX: F EXAM STATUS: REG ER ORD. PHYSICIAN: PATRICIA DYSON APRN REASON: chest pain PROCEDURE: PORTABLE CHEST 1V Examination: PORTABLE CHEST 1V History: Reason: chest pain / Spl. Instructions: / History: Comparison/Correlation: 04/29/2017 Findings: Portable upright frontal view of the chest was obtained. Heart size and pulmonary vessels are normal. No infiltrate or pleural effusion. No pneumothorax. Bony structures are unremarkable. Impression: No active disease. Electronically signed by: Lopez Lamar MD (07/01/2020 12:43 PM) [id number] DICTATED and SIGNED BY: LOPEZ LAMAR MD DATE: 07/01/20 1243 [facility] [address] [place] [address] IMAGING REPORT Signed PATIENT: NISHI LEWIS: [id number] : 1980 LOCATION: ER AGE: 40 SEX: F EXAM STATUS: REG ER ORD. PHYSICIAN: PATRCIIA DYSON APRN REASON: racing heart beat, chest pain, PROCEDURE: CT ANGIOGRAPHY CHEST CTA Chest with contrast: Clinical History: Reason: racing heart beat, chest pain, / Spl. Instructions: IV OMNI 350 90 MLS / History:. Axial helical images of the chest were obtained after the administration of 90 cc of IV Omni 350 and timed appropriately for a pulmonary arterial study. Conventional axial reconstruction was performed in addition to coronal, sagittal and bilateral oblique MIP (maximum intensity projection). This study was ordered to detect possible pulmonary embolism. There are no filling defects to suggest pulmonary embolism. There is a 1.3 cm x 1.3 cm spiculated mass in the right lung apex. Groundglass opacities in the lower lungs are nonspecific and likely discoid atelectasis. There is no mediastinal or hilar lymphadenopathy. The thoracic aorta appears normal. The liver is hypoattenuating. Impression: 1. No evidence of pulmonary embolism. 2. Normal thoracic aorta. 3. Fatty infiltration liver. 4. Spiculated mass the right lung apex could be primary lung cancer especially if the patient is a smoker. Consider a follow-up PET/CT. End impression PQRS Compliance Statement: One or more of the following individualized dose reduction techniques were utilized for this examination: 1. Automated exposure control 2. Adjustment of the mA and/or kV according to patient size 3. Use of iterative reconstruction technique Electronically signed by: Lamar Alberts III, MD (07/01/2020 1:28 PM) [facility] DICTATED and SIGNED BY: LAMAR ALBERTS III, MD DATE: 07/01/20 1328 [facility] [address] [place] [address] IMAGING REPORT Signed PATIENT: VAHID LEWISOUNT: [id number] : 1980 LOCATION: ER AGE: 40 SEX: F EXAM STATUS: REG ER ORD. PHYSICIAN: PATRICIA DYSON APRN REASON: dizziness, headache PROCEDURE: CT HEAD WO CONTRAST CT HEAD WITHOUT CONTRAST 07/01/2020 1:05 PM Indication: Reason: dizziness, headache / Spl. Instructions: / History: Comparison: None Procedure: Multidetector CT imaging of the head was performed without the administration of contrast. Findings: There is no evidence of acute intracranial hemorrhage. There is no evidence of acute territorial infarction. Please note that CT is limited for evaluation of acute ischemia. No mass effect or midline shift is identified . The ventricles and basilar cisterns have an appropriate appearance. No abnormal extra-axial fluid collections are seen. No acute osseous changes are identified. Impression: No evidence of acute intracranial abnormality CT DOSING PQRS STATEMENT: One or more of the following individualized dose reduction techniques were utilized for this examination: 1. Automated exposure control 2. Adjustment of the mA and/or kV according to patient size 3. Use of iterative reconstruction technique Electronically signed by: Jp Stoner MD (07/01/2020 1:16 PM) [id number] DICTATED and SIGNED BY: JP STONER MD DATE: 07/01/20 1316 (PATRICIA DYSON APRN) Course & Med Decision Making: Course & Med Decision Making Pertinent Labs and Imaging studies reviewed. (See chart for details) COVID-19 CRITERIA: The patient was evaluated during the global COVID-19 pandemic, and that diagnosis was suspected/considered upon their initial presentation. Their evaluation, treatment and testing was consistent with current guidelines for patients who present with complaints or symptoms that may be related to COVID-19. See HPI. There is no extremity swelling. Skin pink warm and dry. PERRLA. She does track me in the room and does follow commands. Abdomen is soft and nontender. When I push on her chest does not reproduce the pain. No nystagmus. Lungs are clear to auscultation all lobes. Patient is tachycardic. Patient began stating that she felt like her heart was racing her heart rate jumped up to 153. At this time she grabbed her 's hand and grabbed her chest. First EKG shows sinus tachycardia no STEMI. Second EKG shows sinus tachycardia at 133 and no STEMI. Urinalysis shows no infection. Checks x-ray shows no acute findings. CTA chest impression: 1. No evidence of pulmonary embolism. 2. Normal thoracic aorta. 3. Fatty infiltration liver. 4. Spiculated mass the right lung apex could be primary lung cancer especially if the patient is a smoker. Consider a follow-up PET/CT. [] (PATRICIA DYSON APRN) [place] Disclaimer: Dragon Disclaimer: This electronic medical record was generated, in whole or in part, using a voice recognition dictation system. (PATRICIA DYSON APRN) COVID-19 Patient Risks: Age 65 or older: No Sign of co-morbidity: Yes Exp to person + for COVID: No Exp to PUI: No Travel from affected area: No Lower respiratory symptoms: Yes Fever: No Other: Yes (HEADACHE) (PATRICIA DYSON APRN) PPE Use: Full PPE with N95 mask or PAPR: Yes (PATRICIA DYSON APRN) Departure Departure Impression: Primary Impression: Chest pain at rest Additional Impressions: Tachycardia Dizziness Pneumonia Qualified Codes: J18.9 - Pneumonia, unspecified organism Abnormal radiograph Disposition: 01 DC HOME SELF CARE/HOMELESS Condition: STABLE Referrals: TRAVIS MCGOVERN MD (PCP) Patient Instructions: Dizziness, Incidental Abnormal Radiological Finding, Nonspecific Tachycardia Additional Instructions: Follow-up with your primary care physician. Your Covid test to come back in 48 hours. Drink plenty of fluids and rest. Definicin Se le realiz la prueba de deteccin del COVID-19 o se le diagnostic dicha enfermedad. Es donovan infeccin ocasionada por un nuevo tipo de coronavirus. En la mayora de los casos, el COVID-19 provoca sntomas similares a los del resfriado. En algunas personas, puede ocasionar sntomas ms graves, karime problemas respiratorios. No existe un tratamiento para el virus COVID-19. El cuerpo elimina la infeccin con el tiempo. El cuidado personal ayuda a aliviar el malestar. Pasos que debe seguir 1. Cuidados personales Descanse cuando sea necesario. Los hbitos saludables pueden ayudarlo a sentirse mejor. Algunas medidas para lograr cambios incluyen lo siguiente: - Elija alimentos saludables, karime frutas y verduras. Carolyn abundante cantidad de agua esequiel todo el da. - Duerma edel por la noche. - Si fuma, intente no hacerlo. Gause ayudar a mejorar la respiracin. - Evite el alcohol. 2. Mantenga sanos a los dems El virus puede contagiarse a otras personas. Cada vez que estornuda o tose, se liberan gotitas. Las gotitas pueden entrar en la boca, la nariz o los ojos de las personas que se encuentran cerca de usted y ocasionar la infeccin. Para reducir las probabilidades de contagiar el virus COVID-19 a otros, tenga en cuenta lo siguiente: - Qudese en casa el tiempo que el mdico se lo indique. Es posible que deba quedarse en casa hasta que la enfermedad desaparezca. Salga nicamente para recibir atencin mdica o en aston de urgencia. - Evite las reas pblicas, los eventos o el transporte pblico. No reanude las actividades laborales o escolares hasta que el mdico lo autorice. - Llame previamente si necesita asistir a un centro mdico. Avise que es posible que haya contrado COVID-19. Gause ayudar a que le indiquen adonde debe dirigirse. Debbie pueden pedirle que use donovan mscara facial cuando vaya al consultorio. Si llama a los servicios de asistencia mdica de urgencias, avseles que es posible que haya contrado COVID-19. Mientras est en casa: - Evite el contacto directo con otras personas. Mantngase a donovan distancia aproximada de 2 metros. Si es posible, pasen la mayor parte del tiempo en lujan separadas. - Use donovan mscara facial si estar en contacto directo con otras personas, por ejemplo, si compartir donovan habitacin o un vehculo. - Pida a alguien que limpie las superficies comunes de la casa. Limpie picaportes, mesadas y lavamanos con limpiadores domsticos todos los correa. - Al toser o estornudar, cbrase con un pauelo de papel. Despus de usarlo, deschelo de inmediato. Si no tiene un pauelo de papel, tosa o estornude en el pliegue del codo. - Lvese las gilles con frecuencia. Lvese las gilles despus de estornudar o toser. Lvese con agua y jabn esequiel, al menos, 20 segundos. Si no dispone de agua y jabn, use un limpiador de gilles a base de alcohol. - No cocine para otros. Evite compartir objetos personales, karime tenedores, cucharas o cepillos de dientes. - Mientras est enfermo, evite el contacto directo con las mascotas. No hay indicios de si el virus se transmite a las mascotas. Esta es donovan medida de seguridad que debe tenerse en cuenta hasta que se sepa ms acerca de rolando virus. El aislamiento puede ser frustrante. La interaccin social puede ayudar. Mantngase en contacto con amigos y familiares por telfono u otros medios tecnolgicos. Puede interactuar con otras personas en el hogar, juanjose mantenga donovan distancia cedeno de aproximadamente 2 metros. Seguimiento Las pruebas para confirmar la presencia del COVID-19 pueden demorar algunos correa. Es posible que deba seguir los pasos mencionados anteriormente hasta que estn los resultados de las pruebas. Lo llamarn del consultorio mdico para saber si khan habido algn cambio en boucher david. Tambin le avisarn cuando pueda volver a estar cerca de otras personas. Problemas a los que debe estar atento Comunquese con el mdico si no se recupera segn lo previsto o si tiene problemas karime los siguientes: - Dificultad para respirar - Dolor de pecho - Empeoramiento de los sntomas Si maureen que tiene donovan urgencia, llame a los servicios de asistencia mdica de urgencias de inmediato. As taken from [facility] Scripts Azithromycin (AZITHROMYCIN TABLET) 250 Mg Tablet 1 PKG PO UD for 5 Days, #6 TAB 0 Refills 2 the first day followed by 1 for days 2-5 Prov: PATRICIA DYSON EXPLOSIVE OPERATOR FUSE 07/01/20 Ondansetron (ONDANSETRON ODT) 4 Mg Tab.rapdis 1 TAB PO PRN Q6-8HRS, #16 TAB Prov: AKIRASHIRIN LAMBERTLARS Joshua 07/01/20 Methylprednisolone (MEDROL) 4 Mg Tab.ds.pk 1 PKG PO UD, #1 PKG Prov: KIELPATRICIA Joshua APR07/01/20 Attending Signature Attending Signature I have reviewed the PA/VENEER LAYER's note and plan of care. I was available for consultation as needed during the patient's visit in the emergency department. I agree with the clinical impression, plan, and disposition. (NORMAN MALHOTRA DO) PATRICIA DYSON APRN Jul 01, 2020 12:15 NORMAN MALHOTRA DO Jul 01, 2020 18:43
[2020-07-01 12:21] LABS: CALCIUM 10.1 mg/dL (8.5-10.1); CREATININE 0.7 mg/dL (0.6-1.0); GFR 93.2; POTASSIUM 3.7 mmol/L (3.5-5.1); PROTHROMBIN TIME PATIENT 11.5 SEC (11.7-14.0)
[2020-07-01 12:27] LABS: ALBUMIN 4.2 g/dL (3.4-5.0); ALBUMIN/GLOBULIN RATIO 0.9 (1.0-1.7); MAGNESIUM 1.8 mg/dL (1.8-2.4); TOTAL BILIRUBIN 0.4 mg/dL (0.2-1.0); TOTAL PROTEIN 8.9 g/dL (6.4-8.2)
[2020-07-01] MEDS ORDERED: IOHEXOL 350 MG/ML 100 ML VIAL. IV ONE (12:45)
[2020-07-01] MEDS ORDERED: CONTRAST GIVEN. MC PRN (12:45)
--- NOTE | 2020-07-01 12:46 | RAD ---
Examination: PORTABLE CHEST 1V History: Reason: chest pain / Spl. Instructions: / History: Comparison/Correlation: 04/29/2017 Findings: Portable upright frontal view of the chest was obtained. Heart size and pulmonary vessels are normal. No infiltrate or pleural effusion. No pneumothorax. Bony structures are unremarkable. Impression: No active disease. Electronically signed by: Lopez Ybarra MD (07/01/2020 12:43 PM) [id number]
[2020-07-01 12:59] LABS: BILIRUBIN,URINE NEGATIVE (NEG); CLARITY,URINE CLEAR; COLOR,URINE YELLOW; NITRITE,URINE NEGATIVE (NEG); PH,URINE 5.5 (<5.0-8.0); PROTEIN,URINE NEGATIVE (NEG-TRACE); UROBILINOGEN,URINE 0.2 mg/dL (0.2 mg/dL)
[2020-07-01 13:06] LABS: AMPHETAMINE/METHAMPHETAMINE NEG (NEG); BARBITURATES NEG (NEG); BENZODIAZEPINES NEG (NEG); CANNABINOIDS NEG (NEG); COCAINE NEG (NEG); METHADONE NEG (NEG); OPIATES NEG (NEG); PHENCYCLIDINE NEG (NEG)
[2020-07-01 13:14] LABS: BACTERIA,URINE FEW /HPF (0-FEW)
--- NOTE | 2020-07-01 13:19 | RAD ---
CT HEAD WITHOUT CONTRAST 07/01/2020 1:05 PM Indication: Reason: dizziness, headache / Spl. Instructions: / History: Comparison: None Procedure: Multidetector CT imaging of the head was performed without the administration of contrast. Findings: There is no evidence of acute intracranial hemorrhage. There is no evidence of acute territorial infarction. Please note that CT is limited for evaluation of acute ischemia. No mass effect or midline shift is identified . The ventricles and basilar cisterns have an appropriate appearance. No abnormal extra-axial fluid collections are seen. No acute osseous changes are identified. Impression: No evidence of acute intracranial abnormality CT DOSING PQRS STATEMENT: One or more of the following individualized dose reduction techniques were utilized for this examination: 1. Automated exposure control 2. Adjustment of the mA and/or kV according to patient size 3. Use of iterative reconstruction technique Electronically signed by: Jp Chaidez MD (07/01/2020 1:16 PM) [id number]
--- NOTE | 2020-07-01 13:31 | RAD ---
CTA Chest with contrast: Clinical History: Reason: racing heart beat, chest pain, / Spl. Instructions: IV OMNI 350 90 MLS / History:. Axial helical images of the chest were obtained after the administration of 90 cc of IV Omni 350 and timed appropriately for a pulmonary arterial study. Conventional axial reconstruction was performed in addition to coronal, sagittal and bilateral oblique MIP (maximum intensity projection). This study was ordered to detect possible pulmonary embolism. There are no filling defects to suggest pulmonary embolism. There is a 1.3 cm x 1.3 cm spiculated mass in the right lung apex. Groundglass opacities in the lower lungs are nonspecific and likely discoid atelectasis. There is no mediastinal or hilar lymphadenopathy. The thoracic aorta appears normal. The liver is hypoattenuating. Impression: 1. No evidence of pulmonary embolism. 2. Normal thoracic aorta. 3. Fatty infiltration liver. 4. Spiculated mass the right lung apex could be primary lung cancer especially if the patient is a smoker. Consider a follow-up PET/CT. End impression PQRS Compliance Statement: One or more of the following individualized dose reduction techniques were utilized for this examination: 1. Automated exposure control 2. Adjustment of the mA and/or kV according to patient size 3. Use of iterative reconstruction technique Electronically signed by: Ranjith Duff III, MD (07/01/2020 1:28 PM) [facility]
[2020-07-01] MEDS ORDERED: AZIT250T6 PO (14:35)
[2020-07-01] MEDS ORDERED: METH4TAB2 PO (14:35)
[2020-07-01] MEDS ORDERED: ONDA4TAB12 PO (14:35)
[2020-07-01 15:16] VITALS: BP 123/75
--- NOTE | 2020-07-01 16:22 | EKG ---
[facility] [address] [place] [address] Test Date: 2020-07-01 Test Time: 12:13:23 Pat Name: SARA LEWIS Department: Room: Gender: F [employer] Machine Operator: : 1980 Requested By: PATRICIA DYSON Order Number: [id number] Reading MD: Measurements Intervals [place] Rate: 133 P: 4 SC: 138 QRS: 16 QRSD: 84 T: -3 QT: 306 QTc: 457 Interpretive Statements SINUS TACHYCARDIA QRS(T) CONTOUR ABNORMALITY CONSISTENT WITH INFERIOR INFARCT AGE UNDETERMINED ABNORMAL ECG RI6.01 Compared to ECG 07/01/2020 12:03:39 No significant changes
--- NOTE | 2020-07-01 16:23 | EKG ---
[facility] [address] [place] [address] Test Date: 2020-07-01 Test Time: 12:03:39 Pat Name: SARA LEWIS Department: Room: Gender: F Mig Welder: : 1980 Requested By: PATRICIA DYSON Order Number: [id number] Reading MD: Measurements Intervals [place] Rate: 110 P: 6 DE: 148 QRS: 13 QRSD: 78 T: 19 QT: 330 QTc: 452 Interpretive Statements SINUS TACHYCARDIA QRS(T) CONTOUR ABNORMALITY CONSISTENT WITH INFERIOR INFARCT PROBABLY OLD ABNORMAL ECG RI6.01 No previous ECG available for comparison
--- NOTE | 2020-07-02 12:06 | NUR ---
IP: Attempted to pt COVID results. No answer. Left voicemail to return the call.
== END 2020-07-01 15:40 | disposition home or self-care (01) ==
LOC: ER 11:00
DX: J18.9 Pneumonia, unspecified organism (principal); Z20.828 Contact with and (suspected) exposure to other viral communicable diseases; E11.65 Type 2 diabetes mellitus with hyperglycemia; I10 Essential (primary) hypertension; R00.0 Tachycardia, unspecified; R42 Dizziness and giddiness; R07.89 Other chest pain; R94.31 Abnormal electrocardiogram [ECG] [EKG]
CPT/HCPCS: 36415; 70450; 71045; 71275; 80053; 80307; 81001; 81025; 82010; 82962; 83690; 83735; 83880; 84443; 84484; 85025; 85610; 93005; 96361; 96374; 96375; 99285; C9113; C9803; J0780; J1200; J7030; Q9967; U0003